=== PATIENT | female | born 1940 | race Two or more races ===

== ENCOUNTER 2020-03-16 18:58 | Observation (INO) ==
[2020-03-16 19:49] LABS: Basophils # 0.1 10*3/uL (0.0-0.2); Basophils % 0.5 % (0.0-0.8); Eosinophils # 0.3 10*3/uL (0.0-0.87); Eosinophils % 2.3 % (0.00-10.9); Hematocrit 38.1 VOL% (35.7-47.0); Hemoglobin 12.5 GM/DL (12.0-16.0); Immature Granulocytes % 0.8 %; Immature Granulocytes Absolute 0.09 #; Lymphocytes # 2.7 10*3/uL (1.4-4.0); Lymphocytes % 24.4 % (21.3-54.2); Mean Corpuscular HGB Conc 32.8 GM/DL (32-36); Mean Corpuscular Volume 90.5 FL (87-102); Mean Platelet Volume 9.1 FL (9.6-12.0); Monocytes % 6.9 % (1.7-12.7); Neutrophils % 65.1 % (38.7-73.9); Platelet Count 238 T/CUMM (130-400); Red Blood Count 4.21 MC/CUMM (3.8-5.5); Red Cell Distribution Width 13.8 % (9.3-17.3)
[2020-03-16 20:03] LABS: Calcium 8.7 MG/DL (8.5-10.1); INR 1.1; Osmolality,Calculated 274.1 MOS/KG (273-304); PT Patient Result 11.5 SECS (9.8-11.9)
[2020-03-16] MEDS ORDERED: POTASSIUM CHLORIDE 20 MEQ TABLET PO PRN (20:47)
[2020-03-16] MEDS ORDERED: ENOXAPARIN 40 MG/0.4 ML SYRINGE SUBCUT SCH (21:00)
[2020-03-16] MEDS ORDERED: DEXTROSE 10% 250 ML BAG IV PRN (21:46)
[2020-03-16] MEDS ORDERED: GLUCAGON 1 MG VIAL IM PRN (21:46)
[2020-03-17] MEDS ORDERED: LOPERAMIDE 2 MG CAPSULE PO PRN (00:17)
[2020-03-17] MEDS ORDERED: ACETAMINOPHEN 325 MG TABLET PO PRN (00:29)
[2020-03-17] MEDS ORDERED: CETIRIZINE 10 MG TABLET PO PRN (00:29)
[2020-03-17] MEDS: NITROGLYCERIN 2% OINT 1 INCH/GM PACK TOP SCH ×4 (00:32→18:54)
[2020-03-17] MEDS: INSULIN REGULAR 100 UNIT/ML SUBCUT SCH ×5 (00:33→22:06)
[2020-03-17] MEDS: LEVOTHYROXINE 50 MCG TABLET PO SCH (05:25)
[2020-03-17 06:56] LABS: Risk Ratio 2.57; VLDL CHOLESTEROL 39.4 MG/DL
[2020-03-17 07:07] LABS: Albumin 3.2 G/DL (3.4-5.0); Bilirubin,Total 0.6 MG/DL (0.2-1.0); Calcium 9.3 MG/DL (8.5-10.1); Osmolality,Calculated 271.1 MOS/KG (273-304); Total Protein 6.7 G/DL (6.4-8.3)
[2020-03-17] MEDS ORDERED: ASPIRIN EC 325 MG TABLET PO SCH (09:00)
[2020-03-17] MEDS ORDERED: SELENIUM 200 MCG TABLET PO SCH ×2 (09:00→21:00)
[2020-03-17] MEDS ORDERED: CLOPIDOGREL 75 MG TABLET PO SCH (09:00)
[2020-03-17] MEDS ORDERED: GABAPENTIN 600 MG TABLET PO SCH (09:00)
[2020-03-17] MEDS: hydroCHLOROthiazide 12.5 MG CAPSULE PO SCH (09:55)
[2020-03-17] MEDS: lisinopriL 20 MG TABLET PO SCH (09:55)
[2020-03-17] MEDS: atenoloL 50 MG TABLET PO SCH ×2 (09:55→22:07)
[2020-03-17] MEDS: POTASSIUM CHLORIDE 10 MEQ TABLET PO SCH ×2 (11:29→22:07)
[2020-03-17] MEDS: FOLIC ACID 0.4 MG TABLET PO SCH (11:29)
[2020-03-17] MEDS: PANTOPRAZOLE 40 MG TABLET PO SCH (11:30)
[2020-03-17] MEDS: ESCITALOPRAM 10 MG TABLET PO SCH (11:30)
[2020-03-17] MEDS ORDERED: POTASSIUM CHLORIDE RIDER 10 MEQ in PREMIX 1 EACH IV PRN (14:18)
[2020-03-17] MEDS ORDERED: MAGNESIUM SULF RIDER 2 GM in PREMIX 1 EACH IV PRN (14:18)
[2020-03-17] MEDS ORDERED: DIAZEPAM 5 MG TABLET PO ONE (14:18)
[2020-03-17] MEDS ORDERED: diphenhydrAMINE CAP 25 MG CAPSULE PO ONE (14:18)
[2020-03-17] MEDS ORDERED: ASPIRIN 325 MG TABLET PO ONE (14:18)
[2020-03-17] MEDS ORDERED: SODIUM CHLORIDE 0.9% 1,000 ML IV SCH ×2 (14:30→19:29)
[2020-03-17] MEDS ORDERED: fentaNYL 100 MCG/2 ML VIAL ONE (15:20)
[2020-03-17] MEDS ORDERED: MIDAZOLAM 2 MG/2 ML VIAL ONE (15:20)
[2020-03-17] MEDS ORDERED: LIDOCAINE 1% 20 ML VIAL ONE (15:20)
[2020-03-17] MEDS ORDERED: HEPARIN 5,000 UNIT/1 ML VIAL ONE (15:56)
[2020-03-17] MEDS ORDERED: MELOXICAM 7.5 MG TABLET PO SCH (16:30)
[2020-03-17] MEDS ORDERED: TIROFIBAN 5,000 MCG/100 ML PREMIX IV ONE (16:37)
[2020-03-17] MEDS ORDERED: TIROFIBAN 5,000 MCG/100 ML PREMIX IV SCH (16:40)
[2020-03-17] MEDS ORDERED: TICAGRELOR 90 MG TABLET ONE (17:01)
[2020-03-17 18:34] LABS: Troponin I < 0.015 NG/ML (0.00-0.045)
[2020-03-17] MEDS: GABAPENTIN 600 MG TABLET PO SCH ×2 (18:50→22:07)
[2020-03-17] MEDS: ACETAMINOPHEN 325 MG TABLET PO SCH ×2 (19:54→22:10)
[2020-03-17] MEDS ORDERED: MAGNESIUM OXIDE 400 MG TABLET PO SCH (21:00)
[2020-03-17] MEDS ORDERED: ASPIRIN 325 MG TABLET PO SCH (21:00)
[2020-03-17] MEDS ORDERED: ROSUVASTATIN 10 MG TABLET PO SCH (21:00)
[2020-03-17] MEDS ORDERED: BIMATOPROST 0.01% OPH SOLN 2.5 ML BOTTLE RIGHT EYE SCH (21:00)
[2020-03-17] MEDS: TICAGRELOR 90 MG TABLET PO SCH (22:06)
[2020-03-18] MEDS: NITROGLYCERIN 2% OINT 1 INCH/GM PACK TOP SCH ×3 (00:01→14:04)
[2020-03-18] MEDS ORDERED: DEXTROSE 50% 25 GM/50 ML VIAL IV PRN (00:22)
[2020-03-18] MEDS ORDERED: GLUCAGON 1 MG VIAL IM PRN (00:22)
[2020-03-18 03:40] LABS: Basophils # 0.1 10*3/uL (0.0-0.2); Basophils % 0.6 % (0.0-0.8); Eosinophils # 0.2 10*3/uL (0.0-0.87); Eosinophils % 2.1 % (0.00-10.9); Hematocrit 36.3 VOL% (35.7-47.0); Hemoglobin 12.3 GM/DL (12.0-16.0); Immature Granulocytes % 0.4 %; Immature Granulocytes Absolute 0.04 #; Lymphocytes # 2.3 10*3/uL (1.4-4.0); Lymphocytes % 25.1 % (21.3-54.2); Mean Corpuscular HGB Conc 33.9 GM/DL (32-36); Mean Corpuscular Volume 87.5 FL (87-102); Mean Platelet Volume 9.2 FL (9.6-12.0); Monocytes % 8.1 % (1.7-12.7); Neutrophils % 63.7 % (38.7-73.9); Platelet Count 219 T/CUMM (130-400); Red Blood Count 4.15 MC/CUMM (3.8-5.5); Red Cell Distribution Width 13.7 % (9.3-17.3); White Blood Count 9.1 T/CUMM (4-12)
[2020-03-18 03:58] LABS: Troponin I < 0.015 NG/ML (0.00-0.045)
[2020-03-18 04:10] LABS: Albumin 3.1 G/DL (3.4-5.0); Bilirubin,Total 0.4 MG/DL (0.2-1.0); Calcium 8.8 MG/DL (8.5-10.1); Total Protein 6.5 G/DL (6.4-8.3)
[2020-03-18] MEDS: LEVOTHYROXINE 50 MCG TABLET PO SCH (06:18)
[2020-03-18] MEDS ORDERED: ASPIRIN EC 81 MG TABLET PO SCH (09:00)
[2020-03-18] MEDS: FOLIC ACID 0.4 MG TABLET PO SCH (09:04)
[2020-03-18] MEDS: ACETAMINOPHEN 325 MG TABLET PO SCH (09:05)
[2020-03-18] MEDS: lisinopriL 20 MG TABLET PO SCH (09:05)
[2020-03-18] MEDS: GABAPENTIN 600 MG TABLET PO SCH ×2 (09:05→15:46)
[2020-03-18] MEDS: hydroCHLOROthiazide 12.5 MG CAPSULE PO SCH (09:05)
[2020-03-18] MEDS: PANTOPRAZOLE 40 MG TABLET PO SCH (09:06)
[2020-03-18] MEDS: TICAGRELOR 90 MG TABLET PO SCH (09:06)
[2020-03-18] MEDS: atenoloL 50 MG TABLET PO SCH (09:06)
[2020-03-18] MEDS: ESCITALOPRAM 10 MG TABLET PO SCH (09:06)
[2020-03-18] MEDS: POTASSIUM CHLORIDE 10 MEQ TABLET PO SCH (09:07)
[2020-03-18] MEDS: INSULIN REGULAR 100 UNIT/ML SUBCUT SCH ×2 (09:13→14:11)
[2020-03-18 10:58] LABS: Troponin I < 0.015 NG/ML (0.00-0.045)
[2020-03-18] MEDS ORDERED: FUROSEMIDE 20 MG TABLET PO SCH (14:53)
[2020-03-18 16:02] VITALS: BP 151/81
== END 2020-03-18 16:45 | disposition home or self-care (01) ==
LOC: EDUNIT# → EDBD → N.EDINP 18:58 → N.ED 18:58 → N.TELEN 23:23
PROVIDERS: ADMIT Emergency Medicine; ATTEND Emergency Medicine